=== PATIENT | female | born 1955 | race Caucasian/White ===

== ENCOUNTER 2019-05-22 14:30 | Inpatient (IN) | payer MEDICARE ==
[~2019-05-22] VITALS: Ht 165.1 cm; Wt 86.4 kg
[2019-05-22] MEDS ORDERED: LORazepam 1 MG tablet PO ONE (15:30)
[2019-05-22] MEDS ORDERED: normal saline 1000ml 1,000 ML IV ONE ×2 (15:30)
[2019-05-22 15:47] LABS: BASOPHILS % (AUTO) 0.4 % (0-1); EOSINOPHILS # (AUTO) 0.1 X10'3 (0-0.9); EOSINOPHILS % (AUTO) 0.9 % (0-6); HEMATOCRIT 37.1 % (35.0-45.0); HEMOGLOBIN 13.2 g/dl (12.0-16.0); LYMPHOCYTES # (AUTO) 2.8 X10'3 (1.1-4.8); LYMPHOCYTES % (AUTO) 32.3 % (21-51); MEAN CORPUSCULAR HGB CONC 35.6 g/dL (33.0-36.5); MEAN CORPUSCULAR VOLUME 89.9 FL (78-98); MEAN PLATELET VOLUME 7.8 FL (7.4-10.4); MONOCYTES # (AUTO) 0.6 X10'3 (0-0.9); MONOCYTES % (AUTO) 7.2 % (2-12); NEUTROPHILS # (AUTO) 5.1 X10'3 (1.8-7.7); NEUTROPHILS % (AUTO) 59.2 % (42-75); PLATELET COUNT 300 X10'3 (140-440); RED BLOOD COUNT 4.13 X10'6 (4.20-5.60); RED CELL DISTRIBUTION WIDTH 15.2 % (11.5-14.5); WHITE BLOOD COUNT 8.7 X10'3 (4.5-11.0)
[2019-05-22 16:02] LABS: ALANINE AMINOTRANSFERASE 13 U/L (12-78); ALBUMIN 3.4 G/DL (3.4-5.0); ALBUMIN/GLOBULIN RATIO 0.9 (1.1-1.5); ALKALINE PHOSPHATASE 96 IU/L (46-116); ANION GAP 8 (8-16); ASPARTATE AMINO TRANSFERASE 26 U/L (10-37); BILIRUBIN,TOTAL 1.1 MG/DL (0.1-1.0); BLOOD UREA NITROGEN 11 MG/DL (7-18); BUN/CREATININE RATIO 8.3 (6.6-38.0); CALCIUM 8.6 MG/DL (8.5-10.1); CHLORIDE 85 MMOL/L (99-107); CREATININE 1.32 MG/DL (0.40-0.90); ETHANOL < 0.010 GM/DL (0.0-0.010); GLUCOSE 135 MG/DL (70-104); MAGNESIUM 1.2 MG/DL (1.5-2.4); POTASSIUM 3.4 MMOL/L (3.5-5.1); SODIUM 123 MMOL/L (135-145); TOTAL CARBON DIOXIDE 30.1 MMOL/L (24-32); TOTAL PROTEIN 7.4 G/DL (6.4-8.2); eGFR 41 ML/MIN
[2019-05-22] MEDS ORDERED: folic acid 1mg tablet PO ONE (16:10)
[2019-05-22] MEDS ORDERED: thiamine 100mg tablet PO ONE (16:10)
[2019-05-22] MEDS ORDERED: potassium Cl 20 mEq SR tablet PO ONE (16:10)
[2019-05-22] MEDS ORDERED: magnesium 2GM in 50ml NS 50 ML IV ONE (16:10)
[2019-05-22] MEDS ORDERED: normal saline 1000ml 1,000 ML IV SCH (17:07)
[2019-05-22] MEDS ORDERED: sodium chloride 0.45% 1,000 ML IV SCH (17:07)
[2019-05-22 17:08] LABS: CLARITY,URINE CLEAR (Clear); COLOR,URINE YELLOW (Yellow); GLUCOSE, URINE NEGATIVE (Neg); KETONES,URINE NEGATIVE (Neg); LEUKOCYTE ESTERASE ,URINE NEGATIVE (Neg); NITRITES, URINE NEGATIVE (Neg); OCCULT BLOOD,URINE NEGATIVE (Neg); PROTEIN,URINE NEGATIVE (Neg); UROBILINOGEN,URINE 0.2 E.U/dL (0.2-1.0)
[2019-05-22] MEDS ORDERED: magnesium 4gm in 100ml NS 100 ML IV PRN (17:10)
[2019-05-22] MEDS ORDERED: dextrose 50%-water 50ml dispensing syringe IV PRN ×3 (17:10→17:15)
[2019-05-22] MEDS ORDERED: potassium Cl 20 mEq SR tablet PO PRN ×2 (17:10)
[2019-05-22] MEDS ORDERED: potassium CL 10mEq/100ml bag 100 ML IV PRN ×2 (17:10)
[2019-05-22] MEDS ORDERED: acetaminophen 325mg tablet PO PRN (17:10)
[2019-05-22] MEDS ORDERED: ondansetron/PF 4mg/2ml inj IV PRN (17:10)
[2019-05-22] MEDS ORDERED: magnesium 2GM in 50ml NS 50 ML IV PRN (17:10)
[2019-05-22] MEDS ORDERED: magnesium Cl slow-release 64mg tablet PO PRN (17:10)
[2019-05-22] MEDS ORDERED: METO-411 PO (17:12)
[2019-05-22] MEDS ORDERED: METF500T PO (17:12)
[2019-05-22] MEDS ORDERED: LOSA25TA96 PO (17:12)
[2019-05-22] MEDS ORDERED: glucagon, human recombinant 1mg kit SUBCUT PRN (17:15)
[2019-05-22] MEDS ORDERED: dextrose ORAL solution 15 GM/59 ML bottle PO PRN ×2 (17:15)
[2019-05-22] MEDS ORDERED: MESSAGE TO PHARMACY PO ONE (17:15)
[2019-05-22] MEDS ORDERED: insulin Lispro (HumaLOG) vial - multi-dose SQ SCH (17:15)
[2019-05-22] MEDS ORDERED: CLON-529 PO (17:16)
[2019-05-22] MEDS ORDERED: DULO-31 PO (17:16)
[2019-05-22 17:19] LABS: UA COLLECTION TYPE CLN CATCH MIDSTREAM
[2019-05-22] MEDS ORDERED: FURO-150 PO (17:20)
[2019-05-22] MEDS ORDERED: LOSA100T57 PO (17:20)
[2019-05-22] MEDS ORDERED: QUET25TA34 PO (17:20)
[2019-05-22] MEDS ORDERED: QUEtiapine 25mg tablet PO PRN (17:25)
[2019-05-22] MEDS ORDERED: cloNIDine 0.1 mg tablet PO PRN (17:25)
--- NOTE | 2019-05-22 17:52 | NUR ---
Staff made multiple (approx 6-10 between 3 RNs) attempts at IV access without success. Will confer with EDMD.
--- NOTE | 2019-05-22 18:08 | NUR ---
Dr. Solitario at bedside for central line placement.
--- NOTE | 2019-05-22 18:19 | NUR ---
DR MARTIN IN ROOM ATTEMPTING CENTRAL LINE
[2019-05-22] MEDS ORDERED: loperamide 2mg capsule PO PRN (19:45)
[2019-05-22] MEDS: K and/or MAG REPLACEMENT MC SCH (20:00)
[2019-05-22] MEDS: LORazepam 2 mg/ml vial IV PRN ×2 (20:04→21:36)
[2019-05-22] MEDS: heparin, porcine 5000 units/ml vial SQ SCH (20:06)
[2019-05-22 20:30] VITALS: BP 158/96
[2019-05-22] MEDS: insulin glargine (Lantus) pen - multi-dose SQ SCH (21:00)
[2019-05-22] MEDS: potassium Cl 20mEq in NS 1,000 ML IV SCH (21:35)
[2019-05-23] MEDS: LORazepam 2 mg/ml vial IV PRN ×10 (02:31→23:02)
[2019-05-23] MEDS: acetaminophen 325mg tablet PO PRN ×2 (03:53→12:44)
[2019-05-23 04:21] LABS: BASOPHILS % (AUTO) 0.3 % (0-1); EOSINOPHILS # (AUTO) 0.1 X10'3 (0-0.9); EOSINOPHILS % (AUTO) 2.2 % (0-6); HEMATOCRIT 36.3 % (35.0-45.0); HEMOGLOBIN 12.5 g/dl (12.0-16.0); LYMPHOCYTES # (AUTO) 2.5 X10'3 (1.1-4.8); LYMPHOCYTES % (AUTO) 40.4 % (21-51); MEAN CORPUSCULAR HEMOGLOBIN 31.6 PG (27.0-31.0); MEAN CORPUSCULAR HGB CONC 34.5 g/dL (33.0-36.5); MEAN CORPUSCULAR VOLUME 91.6 FL (78-98); MEAN PLATELET VOLUME 7.8 FL (7.4-10.4); MONOCYTES # (AUTO) 0.5 X10'3 (0-0.9); MONOCYTES % (AUTO) 8.1 % (2-12); NEUTROPHILS # (AUTO) 3.1 X10'3 (1.8-7.7); PLATELET COUNT 266 X10'3 (140-440); RED BLOOD COUNT 3.97 X10'6 (4.20-5.60); RED CELL DISTRIBUTION WIDTH 15.3 % (11.5-14.5); WHITE BLOOD COUNT 6.2 X10'3 (4.5-11.0)
[2019-05-23 04:30] LABS: ALANINE AMINOTRANSFERASE 17 U/L (12-78); ALBUMIN/GLOBULIN RATIO 0.8 (1.1-1.5); ALKALINE PHOSPHATASE 87 IU/L (46-116); ANION GAP 2 (8-16); ASPARTATE AMINO TRANSFERASE 19 U/L (10-37); BILIRUBIN,TOTAL 0.8 MG/DL (0.1-1.0); BLOOD UREA NITROGEN 12 MG/DL (7-18); CALCIUM 7.9 MG/DL (8.5-10.1); CHLORIDE 93 MMOL/L (99-107); CHOL/HDL RATIO 3.5 (0.00-4.99); CHOLESTEROL 193 MG/DL (0-200); CREATININE 1.09 MG/DL (0.40-0.90); GLUCOSE 123 MG/DL (70-104); HDL CHOLESTEROL 55 MG/DL (35-60); LDL CHOLESTEROL 110 MG/DL (50-100); MAGNESIUM 2.7 MG/DL (1.5-2.4); POTASSIUM 3.7 MMOL/L (3.5-5.1); SODIUM 130 MMOL/L (135-145); TOTAL CARBON DIOXIDE 35.2 MMOL/L (24-32); TOTAL PROTEIN 6.6 G/DL (6.4-8.2); TRIGLYCERIDES 240 MG/DL (20-135); eGFR 51 ML/MIN
--- NOTE | 2019-05-23 06:15 | NUR ---
Patient in room [facility]TH[facility] 4010. I have received report from SONY ROGEL and had the opportunity to ask questions and assume patient care.
--- NOTE | 2019-05-23 06:18 | NUR ---
Problems reprioritized. Patient report given, questions answered & plan of care reviewed with Frankie ROGEL.
[2019-05-23] MEDS: K and/or MAG REPLACEMENT MC SCH ×2 (07:52→20:00)
[2019-05-23] MEDS: potassium Cl 20mEq in NS 1,000 ML IV SCH ×2 (07:54→15:41)
[2019-05-23] MEDS: metoprolol succinate 25mg (24-HOUR) SR. Tablet PO SCH (07:54)
[2019-05-23] MEDS: heparin, porcine 5000 units/ml vial SQ SCH ×2 (07:54→20:06)
[2019-05-23] MEDS: losartan 50mg tablet PO SCH (07:54)
[2019-05-23] MEDS: pantoprazole 40mg Tablet.DR PO SCH (07:54)
[2019-05-23 07:55] VITALS: BP 153/86
[2019-05-23] MEDS ORDERED: thiamine 100mg/ml 2ml inj. IV SCH (08:00)
[2019-05-23] MEDS ORDERED: MVI, adult No.4 with vit. K 10 ML in dextrose 5% water 500ml 490 ML IV SCH ×2 (08:00)
[2019-05-23 10:00] VITALS: BP 140/75
--- NOTE | 2019-05-23 10:01 | NUR ---
DM consult: Pt with A1c 6.3, DM education not warranted at this time. Will continue to follow. Addendum: 05/23/19 at [address] Amended: Links added.
[2019-05-23] MEDS ORDERED: guaiFENesin/DM 10ml UD oral syrup PO PRN (10:55)
--- NOTE | 2019-05-23 14:45 | NUR ---
Problems reprioritized. Patient report given, questions answered & plan of care reviewed with MIKE ROGEL.
--- NOTE | 2019-05-23 14:49 | NUR ---
Patient in room [facility]TH[facility] 4010. I have received report from Frankie ROGEL and had the opportunity to ask questions and assume patient care.
[2019-05-23 18:00] VITALS: BP 173/84
--- NOTE | 2019-05-23 18:23 | NUR ---
Problems reprioritized. Patient report given, questions answered & plan of care reviewed with Abby ROGEL.
--- NOTE | 2019-05-23 18:24 | NUR ---
Patient in room [facility]TH[facility] 4010. I have received report from Taz ROGEL and had the opportunity to ask questions and assume patient care.
[2019-05-23] MEDS: insulin glargine (Lantus) pen - multi-dose SQ SCH (21:00)
[2019-05-23 22:00] VITALS: BP 150/89
[2019-05-24] MEDS: LORazepam 2 mg/ml vial IV PRN ×5 (00:47→07:45)
[2019-05-24] MEDS: potassium Cl 20mEq in NS 1,000 ML IV SCH (00:51)
[2019-05-24 04:21] LABS: BASOPHILS % (AUTO) 0.4 % (0-1); EOSINOPHILS # (AUTO) 0.2 X10'3 (0-0.9); EOSINOPHILS % (AUTO) 2.9 % (0-6); HEMATOCRIT 32.6 % (35.0-45.0); HEMOGLOBIN 11.2 g/dl (12.0-16.0); LYMPHOCYTES # (AUTO) 1.8 X10'3 (1.1-4.8); MEAN CORPUSCULAR HEMOGLOBIN 31.9 PG (27.0-31.0); MEAN CORPUSCULAR HGB CONC 34.3 g/dL (33.0-36.5); MEAN CORPUSCULAR VOLUME 93.1 FL (78-98); MEAN PLATELET VOLUME 7.2 FL (7.4-10.4); MONOCYTES # (AUTO) 0.5 X10'3 (0-0.9); MONOCYTES % (AUTO) 9.2 % (2-12); NEUTROPHILS # (AUTO) 2.9 X10'3 (1.8-7.7); NEUTROPHILS % (AUTO) 53.5 % (42-75); PLATELET COUNT 216 X10'3 (140-440); RED CELL DISTRIBUTION WIDTH 15.5 % (11.5-14.5); WHITE BLOOD COUNT 5.4 X10'3 (4.5-11.0)
[2019-05-24 04:36] LABS: ALANINE AMINOTRANSFERASE 18 U/L (12-78); ALBUMIN 2.7 G/DL (3.4-5.0); ALBUMIN/GLOBULIN RATIO 0.8 (1.1-1.5); ALKALINE PHOSPHATASE 76 IU/L (46-116); ANION GAP 5 (8-16); ASPARTATE AMINO TRANSFERASE 19 U/L (10-37); BILIRUBIN,TOTAL 0.3 MG/DL (0.1-1.0); BLOOD UREA NITROGEN 12 MG/DL (7-18); BUN/CREATININE RATIO 11.2 (6.6-38.0); CALCIUM 7.7 MG/DL (8.5-10.1); CHLORIDE 104 MMOL/L (99-107); CREATININE 1.07 MG/DL (0.40-0.90); GLUCOSE 114 MG/DL (70-104); POTASSIUM 3.6 MMOL/L (3.5-5.1); SODIUM 140 MMOL/L (135-145); TOTAL CARBON DIOXIDE 31.4 MMOL/L (24-32); TOTAL PROTEIN 6.1 G/DL (6.4-8.2); eGFR 52 ML/MIN
--- NOTE | 2019-05-24 06:21 | NUR ---
Problems reprioritized. Patient report given, questions answered & plan of care reviewed with Gail ROGEL.
[2019-05-24] MEDS: acetaminophen 325mg tablet PO PRN (06:50)
[2019-05-24 06:51] VITALS: BP 148/92
[2019-05-24] MEDS: losartan 50mg tablet PO SCH (07:44)
[2019-05-24] MEDS: metoprolol succinate 25mg (24-HOUR) SR. Tablet PO SCH (07:44)
[2019-05-24] MEDS: pantoprazole 40mg Tablet.DR PO SCH (07:44)
[2019-05-24] MEDS: heparin, porcine 5000 units/ml vial SQ SCH (07:45)
[2019-05-24] MEDS: K and/or MAG REPLACEMENT MC SCH (07:49)
[2019-05-24] MEDS ORDERED: thiamine 100mg tablet PO SCH (08:00)
[2019-05-24] MEDS ORDERED: multivitamins, therapeutics tablet PO SCH (08:00)
[2019-05-24] MEDS ORDERED: folic acid 1mg tablet PO SCH (08:00)
[2019-05-24 10:05] VITALS: BP 160/82
[2019-05-24] MEDS ORDERED: LORazepam 1 MG tablet PO PRN (10:25)
[2019-05-24] MEDS ORDERED: METF500T PO (11:59)
[2019-05-24] MEDS ORDERED: PANT40TA4 PO (11:59)
[2019-05-24] MEDS ORDERED: folic acid tablet PO (11:59)
[2019-05-24] MEDS ORDERED: ATI1T PO (11:59)
[2019-05-24] MEDS ORDERED: MULT-1179 PO (11:59)
[2019-05-24] MEDS ORDERED: thiamine tablet PO (11:59)
[2019-05-24] MEDS ORDERED: ONDA4TAB6 PO (12:01)
[2019-05-24] MEDS ORDERED: LORazepam 2 mg/ml vial IV PRN (17:10)
[2019-05-26] MEDS ORDERED: LORazepam 1 MG tablet PO PRN (17:10)
[2019-05-26] MEDS ORDERED: LORazepam 2 mg/ml vial IV PRN (17:10)
== END 2019-05-24 13:30 | disposition home or self-care (01) | DRG 641 ==
LOC: ER 14:30 → EDBD 14:30 → ED HOLD 17:07 → UNDOADMIN 17:30 → ED HOLD 17:30 → EDBEDREQ 18:25 → ED HOLD 19:25 → ORTHO 4S 19:25
PROVIDERS: ADMIT Internal Medicine; ATTEND Internal Medicine
DX: E87.1 Hypo-osmolality and hyponatremia (principal); F10.239 Alcohol dependence with withdrawal, unspecified; E87.6 Hypokalemia; E83.42 Hypomagnesemia; E11.9 Type 2 diabetes mellitus without complications; I12.9 Hypertensive chronic kidney disease with stage 1 through stage 4 chronic kidney disease, or unspecified chronic kidney disease; N18.3 Chronic kidney disease, stage 3 (moderate); Z98.84 Bariatric surgery status
CPT/HCPCS: 36415; 36556; 71045; 80053; 80061; 80320; 81003; 82948; 83036; 83735; 85025; 85610; 87081; 89055; 93005; 96365; 97110; 97161; 97530; 99285; G0378; J1644; J1815; J2060; J2405; J3475; J3480; J7030